=== PATIENT | male | born 1965 | race African-American/Black ===

== ENCOUNTER 2018-01-09 12:02 | Emergency (ER) | payer BC ==
[2018-01-09 14:52] VITALS: BP 146/81
--- NOTE | 2018-01-09 17:21 | ED ---
Skin Complaint - HPI Summary HPI Summary: Patient is a 52-year-old male presenting to the ED with diffuse bug bites to the bilateral forearms, forehead and back area. Confirmed bedbugs in a hotel room he stated at a few nights ago. He endorses intense pruritus, however denies any pain. Erythematous raised areas diffusely. Denies any fevers, sweats, chills. Patient is otherwise healthy and denies any allergies. - History of Current Complaint Chief Complaint: EDGeneral Time Seen by Provider: 01/09/18 13:26 Stated Complaint: POSS BED BUGS Hx Obtained From: Patient Onset/Duration: Started Days Ago Skin Exposure Onset/Duration: Days Ago Timing: Constant Onset Severity: Moderate Current Severity: Moderate Pain Intensity: 0 Pain Scale Used: 0-10 Numeric Skin Location: Diffuse Character: Swelling, Pruritus Aggravating Symptom(s): Nothing Associated Signs & Symptoms: Negative Related History: Insect Bite/Sting - Allergy/Home Medications Allergies/Adverse Reactions: Allergies Allergy/AdvReac Type Severity Reaction Status Date / Time Penicillins Allergy Hives Verified 01/09/18 12:09 PMH/Surg Hx/FS Hx/Imm Hx Previously Healthy: Yes - Immunization History Hx Pertussis Vaccination: No Immunizations Up to Date: Yes Infectious Disease History: No Infectious Disease History: Denies: Traveled Outside the [place] in Last 30 Days - Social History Occupation: Employed Full-time Lives: With Family Alcohol Use: Occasionally Hx Substance Use: No Substance Use Type: Reports: None Hx Tobacco Use: No Smoking Status (MU): Never Smoked Tobacco Review of Systems Negative: Fever, Chills, Fatigue, Skin Diaphoresis Negative: Epistaxis, Dental Pain Negative: Palpitations, Chest Pain Negative: Shortness Of Breath, Cough Positive: Rash Neurological: Negative All Other Systems Reviewed And Are Negative: Yes Physical Exam Triage Information Reviewed: Yes Vital Signs On Initial Exam: Initial Vitals Temp Pulse Resp BP Pulse Ox 98.2 F 81 17 121/71 97 01/09/18 12:06 01/09/18 12:06 01/09/18 12:06 01/09/18 12:06 01/09/18 12:06 Vital Signs Reviewed: Yes Appearance: Positive: Well-Appearing, Well-Nourished Skin: Positive: Warm, Skin Color Reflects Adequate Perfusion, Other - Erythematous slightly raised papules resembling bug bites Head/Face: Positive: Normal Head/Face Inspection Eyes: Positive: EOMI, JANET, Conjunctiva Clear Neck: Positive: Supple, No Lymphadenopathy Respiratory/Lung Sounds: Positive: Clear to Auscultation, Breath Sounds Present Cardiovascular: Positive: RRR, Pulses are Symmetrical in both Upper and Lower Extremities Musculoskeletal: Positive: Strength/ROM Intact Neurological: Positive: Sensory/Motor Intact, Alert, Oriented to Person Place, Time, Speech Normal Psychiatric: Positive: Normal, Affect/Mood Appropriate AVPU Assessment: Alert Diagnostics - Vital Signs Vital Signs Temp Pulse Resp BP Pulse Ox 01/09/18 14:51 97.1 F 75 18 146/81 98 01/09/18 12:06 98.2 F 81 17 121/71 97 - Laboratory Lab Statement: Any lab studies that have been ordered have been reviewed, and results considered in the medical decision making process. Course/Dx - Course Course Of Treatment: Patient is given hydroxyzine, prednisone and triamcinolone cream for diffuse but bites to the bilateral arms and forehead. - Diagnoses Provider Diagnoses: Bed bug bite Discharge - Sign-Out/Discharge Documenting (check all that apply): Patient Departure - Discharge Plan Condition: Stable Disposition: HOME Prescriptions: hydrOXYzine HCL TAB* [Atarax 25 MG TAB*] 25 mg PO TID PRN #20 tab PRN Reason: Itching predniSONE TAB* [Deltasone TAB*] 50 mg PO DAILY #6 tab MDD 1 Triamcinolone 0.5% CREAM(NF) [Triamcinolone 0.5% CREAM*] 1 applic TOPICAL TID # 2 tube Patient Education Materials: Urticaria (ED), Insect Bite or Sting (ED) Referrals: No Primary Care Phys,NOPCP [Primary Care Provider] - Additional Instructions: You both have a reaction to insect bites - most likely bed bugs Apply cream to the affected area 3 times daily Prednisone once daily 6 days Hydroxyzine up to 3 times daily for itching, 50 mg Benadryl nightly until symptoms resolve If symptoms worsen, return to the ED - Billing Disposition and Condition Condition: STABLE Disposition: Home
== END 2018-01-09 14:51 | disposition home or self-care (01) ==
LOC: ED 12:02
DX: S50.862A Insect bite (nonvenomous) of left forearm, initial encounter (principal); S50.861A Insect bite (nonvenomous) of right forearm, initial encounter; S00.86XA Insect bite (nonvenomous) of other part of head, initial encounter; S20.469A Insect bite (nonvenomous) of unspecified back wall of thorax, initial encounter; W57.XXXA Bitten or stung by nonvenomous insect and other nonvenomous arthropods, initial encounter; Y93.9 Activity, unspecified; Y92.59 Other trade areas as the place of occurrence of the external cause; Z88.0 Allergy status to penicillin
CPT/HCPCS: 99281